=== PATIENT | female | born 1995 | race Caucasian/White ===

== ENCOUNTER 2020-05-21 04:25 | Day surgery (SDC) | payer BC, OTHER ==
[2020-05-20 11:41] VITALS: BMI 24.7
[2020-05-21] MEDS ORDERED: CEFAZOLIN 2 GM/D5W 2 GM/50 ML ML IVPB ONE (07:00)
[2020-05-21] MEDS ORDERED: SUCCINYLCHOLINE CHLORIDE 200 MG/10 ML SYRINGE ONE (07:17)
[2020-05-21] MEDS ORDERED: LIDOCAINE HCL/PF 2% SDV 5ML VIAL ONE (07:17)
[2020-05-21] MEDS ORDERED: fentaNYL CITRATE 250 MCG/5 ML VIAL ONE (07:17)
[2020-05-21] MEDS ORDERED: ROCURONIUM BROMIDE 50 MG/5 ML SYRINGE ONE ×2 (07:17→10:38)
[2020-05-21] MEDS ORDERED: DEXAMETHASONE SOD PHOSPHATE 4 MG/1 ML VIAL ONE ×2 (07:17→11:13)
[2020-05-21] MEDS ORDERED: PROPOFOL 20 ML ONE (07:17)
[2020-05-21] MEDS ORDERED: MIDAZOLAM HCL 2 MG/2 ML SINGLE DOSE VIAL ONE ×3 (07:17→08:22)
[2020-05-21] MEDS ORDERED: GLYCOPYRROLATE 0.2 MG/1 ML VIAL ONE ×2 (07:18→11:02)
[2020-05-21 07:29] LABS: INR 1.17 (0.83-1.09); PROTHROMBIN TIME (PATIENT) 14.3 SEC (9.7-13.0)
[2020-05-21 07:32] LABS: ACTIVATED PTT 39.3 SECONDS (25.2-36.5)
[2020-05-21] MEDS ORDERED: BUPIVACAINE LIPOSOME/PF (EXPAREL) 266 MG/20 ML VIAL ONE (07:40)
[2020-05-21] MEDS ORDERED: ceFAZolin SODIUM 1 GM VIAL ONE ×3 (08:00→17:56)
[2020-05-21] MEDS ORDERED: ACETAMINOPHEN INJECTION 100 ML IVPB ONE (09:25)
[2020-05-21] MEDS ORDERED: ceFAZolin SODIUM 1 GM VIAL IVPB ONE (09:34)
[2020-05-21] MEDS ORDERED: ACETAMINOPHEN 1000 MG/100 ML VIAL (NON FORMULARY) IVPB ONE (09:42)
[2020-05-21] MEDS ORDERED: HYDROmorphone HCl 2 MG/ML VIAL ONE (10:48)
[2020-05-21] MEDS ORDERED: NEOSTIGMINE METHYLSULFATE 0.5 MG/ML - 10 ML MDV ONE (11:02)
[2020-05-21] MEDS ORDERED: KETOROLAC TROMETHAMINE 30 MG/1 ML VIAL ONE (11:13)
[2020-05-21] MEDS ORDERED: ONDANSETRON 4 MG/2 ML VIAL ONE (11:46)
[2020-05-21] MEDS: ONDANSETRON 4 MG/2 ML VIAL IVPUSH PRN ×2 (11:47→18:38)
[2020-05-21] MEDS ORDERED: PROMETHAZINE HCL 25 MG/1 ML VIAL ONE (11:47)
[2020-05-21] MEDS ORDERED: LACTATED RINGERS SOLUTION 1,000 ML IV SCH (12:45)
[2020-05-21] MEDS ORDERED: PROMETHAZINE HCL 25 MG/1 ML VIAL IVPUSH ONE (12:49)
[2020-05-21] MEDS: ACETAMINOPHEN 1000 MG/100 ML VIAL (NON FORMULARY) IVPB SCH ×3 (17:31→23:24)
[2020-05-21] MEDS ORDERED: DEXTROSE 5%-WATER - 50 ML IVPB ONE (17:56)
[2020-05-21] MEDS: CEFAZOLIN 1 GM in DEXTROSE 5%-WATER - 50 ML IVPB SCH (18:00)
[2020-05-21] MEDS: IBUPROFEN 800 MG/8 ML IJ IVPB SCH ×2 (20:05→20:14)
[2020-05-22] MEDS ORDERED: ceFAZolin SODIUM 1 GM VIAL ONE (01:07)
[2020-05-22] MEDS ORDERED: DEXTROSE 5%-WATER - 50 ML IVPB ONE (01:07)
[2020-05-22] MEDS: CEFAZOLIN 1 GM in DEXTROSE 5%-WATER - 50 ML IVPB SCH (01:33)
[2020-05-22] MEDS: IBUPROFEN 800 MG/8 ML IJ IVPB SCH (03:53)
[2020-05-22] MEDS: ACETAMINOPHEN 1000 MG/100 ML VIAL (NON FORMULARY) IVPB SCH (05:48)
[2020-05-22] MEDS ORDERED: MORPHINE SULFATE 2 MG/ML VIAL IVPB ONE (08:26)
[2020-05-22] MEDS ORDERED: KETOROLAC TROMETHAMINE 30 MG/1 ML VIAL IVPUSH SCH (09:00)
[2020-05-22] MEDS ORDERED: ACETAMINOPHEN 650 MG/20.3 ML ORAL SOLUTION (CUPS) PO PRN (09:30)
[2020-05-22 11:44] LABS: BASO % 0.3 % (0-2.0); EOS % 0.4 % (0-4.5); HEMATOCRIT 34.2 % (32.4-45.2); HEMOGLOBIN 10.8 GM/dL (10.7-15.3); LYMPH % 16.5 % (8-40); MCH 22.4 pg (25.7-33.7); MCHC 31.6 g/dl (32.0-36.0); MEAN CELL VOLUME 70.9 fl (80-96); NEUT % 74.8 % (42.8-82.8); PLATELET COUNT 172 K/MM3 (134-434); RBC 4.83 M/mm3 (3.60-5.2); RDW 14.8 % (11.6-15.6); WHITE BLOOD COUNT 16.2 K/mm3 (4.0-10.0)
[2020-05-22 11:56] LABS: POTASSIUM 3.8 mmol/L (3.5-5.1)
[2020-05-22 11:57] LABS: CALCIUM 8.9 mg/dL (8.5-10.1)
[2020-05-22 11:59] LABS: BLOOD UREA NITROGEN 8.1 mg/dL (7-18)
[2020-05-22 12:01] LABS: CREATININE 0.5 mg/dL (0.55-1.3)
[2020-05-22 12:32] VITALS: BP 105/67; PULSE 95; TEMP 98
[2020-05-22] MEDS ORDERED: ACETAMINOPHEN W/ CODEINE LIQ 5 ML CUP PO PRN (12:32)
== END 2020-05-22 14:21 | disposition home or self-care (01) ==
LOC: JASUSAT 04:25 → JERBED 16:15 → J8W 16:30 → JASUSAT 05-22 14:21
PROVIDERS: ATTEND Obstetrics & Gynecology Gynecologic Oncology
PROC: 0UT7FZZ Resection of Bilateral Fallopian Tubes, Via Natural or Artificial Opening With Percutaneous Endoscopic Assistance (ICD-10-PCS; 2020-05-21)
PROC: 8E0W4CZ Robotic Assisted Procedure of Trunk Region, Percutaneous Endoscopic Approach (ICD-10-PCS; 2020-05-21)
PROC: 0UT9FZZ Resection of Uterus, Via Natural or Artificial Opening With Percutaneous Endoscopic Assistance (ICD-10-PCS; principal; 2020-05-21 09:00)
PROC: 0UT0FZZ Resection of Right Ovary, Via Natural or Artificial Opening With Percutaneous Endoscopic Assistance (ICD-10-PCS; 2020-05-21 09:00)
DX: N80.0 Endometriosis of uterus (principal); D27.0 Benign neoplasm of right ovary; N83.8 Other noninflammatory disorders of ovary, fallopian tube and broad ligament; F84.2 Rett's syndrome; G80.9 Cerebral palsy, unspecified
CPT/HCPCS: 58552; S2900; 36415; 80048; 84703; 85025; 85610; 85730; 86850; 86900; 86901; 88307-TC; 88331-TC; 94760; J0131